=== PATIENT | female | born 1995 | race American Indian/Alaskan Native ===

== ENCOUNTER 2022-06-19 12:04 | Inpatient (IN) | payer MEDICAID ==
[2022-06-19] MEDS ORDERED: Carboprost Tromethamine 250 MCG/1 ML Amp IM PRN (12:51)
[2022-06-19] MEDS ORDERED: Lactated Ringers 1,000 ML IV ONE (12:51)
[2022-06-19] MEDS ORDERED: Tranexamic Acid 1,000 MG in Sodium Chloride 0.9% 100 ML IV PRN (12:51)
[2022-06-19] MEDS ORDERED: Misoprostol 400 MCG (4 X 100 MCG TAB) RECTAL PRN (12:51)
[2022-06-19] MEDS ORDERED: Sodium Chloride 0.9% 10 ML Syringe FLUSH PRN ×2 (12:51→16:37)
[2022-06-19] MEDS ORDERED: Acetaminophen 325 MG Tab PO PRN (12:51)
[2022-06-19] MEDS ORDERED: Methylergonovine 0.2 MG/1 ML Amp IM PRN (12:51)
[2022-06-19] MEDS ORDERED: Lidocaine 1% 30 ML SDV INJECT PRN (12:51)
[2022-06-19] MEDS ORDERED: Penicillin G Potassium 5 MILLUNITS in Sodium Chloride 0.9% 100 ML IV STA (12:51)
[2022-06-19] MEDS ORDERED: Ondansetron 4 MG/2 ML SDV IVPUSH PRN (12:51)
[2022-06-19] MEDS ORDERED: Oxytocin/Normal Saline 30 UNIT/500 ML BAG IV SCH (13:00)
[2022-06-19] MEDS ORDERED: Lactated Ringers 1,000 ML IV SCH (13:00)
[2022-06-19] MEDS ORDERED: Penicillin G Potassium 5,000,000 Unit Vial ONE (13:10)
[2022-06-19 13:36] LABS: ESTIMATED GFR 110 mL/min (>=60)
[2022-06-19 13:40] LABS: AMPHETAMINES,URINE NEGATIVE (NEGATIVE); BARBITURATES,URINE NEGATIVE (NEGATIVE); BENZODIAZEPINE,URINE NEGATIVE (NEGATIVE); MDMA (ECSTASY), URINE NEGATIVE (NEGATIVE); METHADONE,URINE NEGATIVE (NEGATIVE); METHAMPHETAMINES,URINE POSITIVE (NEGATIVE); OPIATES,URINE NEGATIVE (NEGATIVE); OXYCODONE,URINE NEGATIVE (NEGATIVE); PHENCYCLIDINE,URINE NEGATIVE (NEGATIVE); TCA,URINE NEGATIVE (NEGATIVE)
[2022-06-19] MEDS ORDERED: Zolpidem 5 MG Tab PO PRN (16:37)
[2022-06-19] MEDS ORDERED: Simethicone 80 MG Tab.Chew PO PRN (16:37)
[2022-06-19] MEDS ORDERED: Benzocaine/Menthol 20%-0.5% Spray 78 GM Cannister TOP PRN (16:37)
[2022-06-19] MEDS ORDERED: Oxytocin 10 Units/1 ML SDV IM PRN (16:37)
[2022-06-19] MEDS ORDERED: Morphine PF 1 MG/ML Amp ITHECAL ONE (16:48)
[2022-06-19] MEDS ORDERED: Penicillin G Potassium 3 MILLUNITS in Sodium Chloride 0.9% 100 ML IV SCH (17:00)
[2022-06-19] MEDS ORDERED: Witch Hazel Medicated Pads 100/Jar TOP PRN (20:25)
[2022-06-19] MEDS: Docusate Sodium 100 MG Cap PO PRN (20:41)
[2022-06-19] MEDS: Ibuprofen 800 MG Tab PO PRN (20:41)
[2022-06-20] MEDS: Ibuprofen 800 MG Tab PO PRN ×2 (09:59→19:44)
[2022-06-20] MEDS: Docusate Sodium 100 MG Cap PO PRN ×2 (10:00→19:44)
[2022-06-20] MEDS: Prenatal Multivitamin with Calcium/Folic Acid/Iron Tab PO SCH (10:00)
[2022-06-21 09:38] VITALS: BP 133/90; PULSE 69
[2022-06-21] MEDS: Docusate Sodium 100 MG Cap PO PRN (11:07)
[2022-06-21] MEDS: Prenatal Multivitamin with Calcium/Folic Acid/Iron Tab PO SCH (11:08)
[2022-06-21] MEDS: Ibuprofen 800 MG Tab PO PRN (11:08)
[2022-06-22 12:47] LABS: C.TRACHOMATIS BY TMA Negative (Negative); N.GONORRHOEAE BY TMA Negative (Negative)
== END 2022-06-21 18:15 | disposition home or self-care (01) | DRG 807 ==
LOC: DL.OBCHECK 12:04 → DL.OB 13:20 → OBSVTOIN 16:14
PROVIDERS: ADMIT Family Medicine; ATTEND Family Medicine
PROC: 10D07Z6 Extraction of Products of Conception, Vacuum, Via Natural or Artificial Opening (ICD-10-PCS; principal; 2022-06-19)
PROC: 0KQM0ZZ Repair Perineum Muscle, Open Approach (ICD-10-PCS; 2022-06-19)
PROC: 10907ZC Drainage of Amniotic Fluid, Therapeutic from Products of Conception, Via Natural or Artificial Opening (ICD-10-PCS; 2022-06-19)
PROC: 4A1HXCZ Monitoring of Products of Conception, Cardiac Rate, External Approach (ICD-10-PCS; 2022-06-19)
PROC: 3E0R3BZ Introduction of Anesthetic Agent into Spinal Canal, Percutaneous Approach (ICD-10-PCS; 2022-06-19)
PROC: 00HU33Z Insertion of Infusion Device into Spinal Canal, Percutaneous Approach (ICD-10-PCS; 2022-06-19)
DX: O14.04 Mild to moderate pre-eclampsia, complicating childbirth (principal); Z37.0 Single live birth; Z3A.39 39 weeks gestation of pregnancy; O76 Abnormality in fetal heart rate and rhythm complicating labor and delivery; O70.1 Second degree perineal laceration during delivery; O99.324 Drug use complicating childbirth; F15.90 Other stimulant use, unspecified, uncomplicated; Z20.822 Contact with and (suspected) exposure to COVID-19
CPT/HCPCS: 36415; 59409; 62320; 80305-QW; 81003; 82565; 82570; 83615; 84156; 84450; 84460; 84520; 84550; 85027; 87081; 87491; 87591; A9270-GY; J2274; J2540; J2590; J7120; U0002

== ENCOUNTER 2023-07-31 13:32 | Emergency (ER) | payer MEDICAID ==
[2023-07-31] MEDS ORDERED: Take Home: Clindamycin HCl 150 MG, 12 Cap Pack PO ONE (13:49)
[2023-07-31 13:50] VITALS: BP 123/71; PULSE 97
[2023-07-31] MEDS ORDERED: Clindamycin HCl 150 MG Cap PO ONE (13:50)
== END 2023-07-31 14:10 | disposition home or self-care (01) ==
LOC: DL.ED 13:32
DX: K04.7 Periapical abscess without sinus (principal); K02.9 Dental caries, unspecified
CPT/HCPCS: 99282; A9270-GY

== ENCOUNTER 2024-06-16 11:38 | Emergency (ER) | payer MEDICAID ==
[2024-06-16 11:58] VITALS: BP 138/103; PULSE 137
== END 2024-06-16 12:05 ==
LOC: DL.ED 11:38
DX: S00.83XA Contusion of other part of head, initial encounter (principal); S60.212A Contusion of left wrist, initial encounter; S60.211A Contusion of right wrist, initial encounter; S80.12XA Contusion of left lower leg, initial encounter; S80.11XA Contusion of right lower leg, initial encounter; S05.12XA Contusion of eyeball and orbital tissues, left eye, initial encounter; S05.11XA Contusion of eyeball and orbital tissues, right eye, initial encounter; S80.212A Abrasion, left knee, initial encounter; S80.211A Abrasion, right knee, initial encounter; Z86.16 Personal history of COVID-19; Z90.49 Acquired absence of other specified parts of digestive tract; Y09 Assault by unspecified means; Y04.2XXA Assault by strike against or bumped into by another person, initial encounter
CPT/HCPCS: 99283

== ENCOUNTER 2024-06-16 12:24 | Emergency (ER) | payer MEDICAID | END 2024-06-16 12:44 | LOC: DL.ED 12:24 | DX: Z53.21 Procedure and treatment not carried out due to patient leaving prior to being seen by health care provider (principal) ==